=== PATIENT | male | born 2000 | race Caucasian/White ===

== ENCOUNTER 2019-06-10 23:02 | Emergency (ER) | payer BC ==
[~2019-06-10] VITALS: Ht 188 cm; Wt 110.0 kg
[2019-06-10 23:06] VITALS: BP 140/85
[2019-06-10] MEDS ORDERED: CEFTIN 250250 MG/TAB PO (23:26)
[2019-06-10] MEDS ORDERED: ADVIL200 MG PO (23:27)
[2019-06-10 23:46] LABS: HEMATOCRIT 45.5 % (42.0-52.0); HEMOGLOBIN 15.7 g/dl (13.5-18.0); MEAN CELL VOLUME 87 fl (80.0-100.0); MEAN CORPUSCULAR HEMOGLOBIN 30 pg (27.0-31.0); MEAN CORPUSCULAR HGB CONC 35 g/dl (33.0-37.0); MEAN PLATELET VOLUME 8.9 fl (7.4-10.4); PLATELET COUNT 278 K/mm3 (130-400); RED BLOOD COUNT 5.23 M/mm3 (4.20-5.60); REDCELL DISTRIBUTION WIDTH-CV 12.6 % (11.5-14.5)
[2019-06-10 23:55] LABS: COLLECTION METHOD CLEAN CATCH
[2019-06-10 23:57] LABS: ALBUMIN 4.5 gm/dL (3.5-5.0); BILIRUBIN,TOTAL 0.5 mg/dL (0.0-1.0); CALCIUM 9.4 mg/dL (8.4-10.2); CREATININE, serum 0.84 (0.66-1.25); POTASSIUM 3.8 mmol/L (3.4-5.0)
[2019-06-11 00:07] LABS: PH 6 (5-8); SQUAMOUS EPITHELIAL 0-2 /hpf; URINE APPEARANCE Clear; URINE BACTERIA None Seen /hpf; URINE BILIRUBIN Negative (NEGATIVE); URINE BLOOD 1+ (NEGATIVE); URINE COLOR Yellow; URINE GLUCOSE Negative (NEGATIVE); URINE KETONE Negative (NEGATIVE); URINE LEUKOCYTE ESTERASE Negative (NEGATIVE); URINE NITRATE Negative (NEGATIVE); URINE PROTEIN(semi-quant) Negative (NEGATIVE); URINE RBC 0-2 /hpf; URINE UROBILINOGEN Negative (NEGATIVE)
[2019-06-11 00:15] LABS: MONOSCREEN NEGATIVE
[2019-06-11 00:27] LABS: TSH w REFLEX 2.3 uIU/mL (0.465-4.680)
[2019-06-11] MEDS ORDERED: DOXYCYCLINE HY100 MG PO (00:33)
[2019-06-11] MEDS ORDERED: SUDAFED30 MG PO (00:36)
[2019-06-11 00:37] LABS: BAND 9 % (0-10); EOSINOPHIL 1 % (0-4); LYMPHOCYTE 44 % (20.0-51.0); METAMYELOCYTE 1 % (0-0); NEUTROPHILS 36 % (42.0-75.2); PLATELET ESTIMATE NORMAL (NORMAL)
[2019-06-11 00:38] LABS: ANISOCYTOSIS 1+; OVALOCYTES 1+; POIKILOCYTOSIS 1+
[2019-06-11 02:53] VITALS: PULSE 81; TEMP 97.2
== END 2019-06-11 02:53 | disposition home or self-care (01) ==
LOC: COL.ER 23:02
PROVIDERS: Emergency Medicine
DX: J32.0 Chronic maxillary sinusitis (principal)
CPT/HCPCS: J2405; J3010; J7030; J7050

== ENCOUNTER 2019-06-16 18:19 | Emergency (ER) | payer BC ==
[~2019-06-16] VITALS: Ht 188 cm; Wt 110.0 kg
[~2019-06-16 18:19] MED LIST: ADVIL200 MG PO; CEFTIN 250250 MG/TAB PO; DOXYCYCLINE HY100 MG PO; SUDAFED30 MG PO
[2019-06-16 18:23] VITALS: TEMP 97.3
[2019-06-16 19:21] LABS: HEMATOCRIT 45.9 % (42.0-52.0); HEMOGLOBIN 15.5 g/dl (13.5-18.0); MEAN CELL VOLUME 88 fl (80.0-100.0); MEAN CORPUSCULAR HEMOGLOBIN 30 pg (27.0-31.0); MEAN CORPUSCULAR HGB CONC 34 g/dl (33.0-37.0); MEAN PLATELET VOLUME 8.8 fl (7.4-10.4); PLATELET COUNT 287 K/mm3 (130-400); RED BLOOD COUNT 5.23 M/mm3 (4.20-5.60); REDCELL DISTRIBUTION WIDTH-CV 13.3 % (11.5-14.5)
[2019-06-16 19:34] LABS: ALBUMIN 4.3 gm/dL (3.5-5.0); C-REACTIVE PROTEIN 0.7 mg/dL (0.0-0.9); CALCIUM 9.5 mg/dL (8.4-10.2); CREATININE, serum 0.69 (0.66-1.25); POTASSIUM 3.8 mmol/L (3.4-5.0); TOTAL PROTEIN 7.9 gm/dL (6.4-8.2)
[2019-06-16 20:44] LABS: MONOSCREEN NEGATIVE
[2019-06-16 20:59] LABS: BAND 9 % (0-10); EOSINOPHIL 1 % (0-4); LYMPHOCYTE 50 % (20.0-51.0); NEUTROPHILS 36 % (42.0-75.2); PLATELET ESTIMATE NORMAL (NORMAL)
[2019-06-16] MEDS ORDERED: LEVAQUIN 750MG750 M1 PO (21:04)
[2019-06-16] MEDS ORDERED: PHENERGAN 25 TA25 MG PO (21:04)
[2019-06-16 21:56] VITALS: BP 144/67; PULSE 93
[2019-06-17 13:02] LABS: EBV NUCLEAR ANTIGEN IGG Positive (())
[2019-06-17 13:04] LABS: EBV EARLY ANTIGEN IGG Positive (())
[2019-06-17 13:07] LABS: EBV IGM AB Positive (())
== END 2019-06-16 21:58 | disposition home or self-care (01) ==
LOC: COL.ER 18:19
PROVIDERS: Emergency Medicine
DX: B27.90 Infectious mononucleosis, unspecified without complication (principal)
CPT/HCPCS: J2550